=== PATIENT | female | born 1945 | race Caucasian/White ===

== ENCOUNTER 2024-10-27 19:12 | Emergency (ER) | payer MEDICARE, SELFPAY ==
[2024-10-27 19:14] VITALS: BP 114/58
[2024-10-27 20:38] VITALS: BP 122/58
[2024-10-27] MEDS: NSS 1000 IV (20:40)
[2024-10-27 20:41] VITALS: BMI 23.2
[2024-10-27 20:46] VITALS: BP 122/58
[2024-10-27 21:00] VITALS: BP 118/61
[2024-10-27 21:00] LABS: Hematocrit 30.5 % (37.0-47.0); Hemoglobin 10.3 g/dL (12.0-16.0); Mean Corp Hgb Conc. 33.8 g/dL (33.0-37.0); Mean Corpuscular Volume 82.9 fL (81.0-99.0); Platelet Count 154 10^3/uL (130-400); Red Cell Dist. Width 19.1 % (11.5-14.5)
[2024-10-27 21:13] LABS: ALT (SGPT) 13 U/L (0-35); AST (SGOT) 18 U/L (14-36); Albumin 2.8 g/dl (3.5-5.0); Alkaline Phosphatase 51 U/L (38-126); Blood Urea Nitrogen 27 mg/dl (7-17); Calcium 8.1 mg/dl (8.4-10.2); Carbon Dioxide 22 mmol/L (22-30); Chloride 98 mmol/L (98-107); Estimated Creatinine Clearance 39 ml/min; Glucose 129 mg/dl (70-99); Potassium 4.4 mmol/L (3.5-5.1); Sodium 127 mmol/L (135-145); Total Protein 5.5 g/dl (6.3-8.2); eGFR > 60.00
[2024-10-27 21:24] LABS: Absolute Neutrophils -Man Diff 1.7 10^3/uL (1.4-6.5)
[2024-10-27 21:25] LABS: Anisocytosis Slight; Basophilic Stippling Occasional; Normal RBC Morphology No; Ovalocytes Slight; Platelets Checked Yes; Poikilocytosis 1+; Polychromasia Slight; Tear Drop Red Blood Cells Slight
[2024-10-27 21:26] LABS: Acanthocytes 1+; Burr Cells Slight; Total Cells Counted 100
[2024-10-27 22:00] VITALS: BP 115/54
--- NOTE | 2024-10-27 22:00 | EDRN ---
Dr. Calderón at bedside taking with patient, wants to admit her, patient does not want to stay, patient to discuss with family
--- NOTE | 2024-10-27 22:23 | ED.GENMED ---
History of Present Illness
General
Chief Complaint: Failure to Thrive
Time Seen by Provider: 10/27/24 19:30
History of Present Illness
History of Present Illness:
79-year-old female with history of chronic back pain presenting with family for concern of failure to thrive. Patient presents from home. Family notes that the 1 to check on her today had a change in behavior. She was more aggressive, resistant
to them coming into the house and up for weeks she has not been eating or drinking. They are concerned that dehydration. Patient himself denies any falls. She denies any present pain. She does note a mild cough. Denies fever or chest pain.
Denies abdominal pain. Does note 15 pound weight loss, however over several months which family attributes to not eating. Denies any falls. Denies additional acute medical complaints
Past History
Past History
ED Past Medical History: Other (Sciatica)
ED Past Surgical History: Orthopedic
Phy Exam
Physical Exam
Physical Exam:
General: Well-appearing, slight dryness to mucous membrane, nontoxic and in no acute distress
HEENT: protecting airway
Neck: appears supple
CV: Normal heart rate, regular rhythm
Resp: No accessory muscle use, no increased work of breathing, lungs clear to auscultation bilaterally
Abd: Soft and non-distended, no tenderness to palpation
Extremities: No deformities, no swelling, no erythema, pulses and sensation intact
Neuro: alert, no focal neurologic deficit
: deferred
Rectal: deferred
Psych: Normal affect
Skin: Intact
Course
Orders/Labs/Results
Orders:
Orders
10/27/24 20:34
Electrocardiogram (*1) Stat
Reason for Study: Abdominal Pain
EKG- Treatment ONCE
0.9% Sodium Chloride 1000 ml [Nss] 1,000 ml IV BOLUS
10/27/24 20:35
Urinalysis Reflex To Culture Urgent
Date Specimen was Collected: 10/27/24
Time Specimen was Collected: 22:36
CR Chest - 2 Views Urgent
Comment:
Reason For Exam: cough
10/27/24 20:41
Complete Blood Count/With Diff Urgent
Comprehensive Metabolic Panel Urgent
Manual Differential Urgent
Abnormal Lab Results
10/27/24
20:41
WBC 2.4 L* 10^3/uL
(4.8-10.8)
RBC 3.68 L 10^6/uL
(4.20-5.40)
Hgb 10.3 L g/dL
(12.0-16.0)
Hct 30.5 L %
(37.0-47.0)
RDW 19.1 H %
(11.5-14.5)
Band Neutrophils 16 H %
(0-3)
Sodium 127 L mmol/L
(135-145)
BUN 27 H mg/dl
(7-17)
Glucose 129 H mg/dl
(70-99)
Calcium 8.1 L mg/dl
(8.4-10.2)
Total Protein 5.5 L g/dl
(6.3-8.2)
Albumin 2.8 L g/dl
(3.5-5.0)
10/27/24 20:41
10/27/24 20:41
Vital Signs
Initial and Last Documented VS:
Initial Vital Signs
Temp Pulse Resp BP Pulse Ox
100.1 F 122 16 114/58 92
10/27/24 19:14 10/27/24 19:14 10/27/24 19:14 10/27/24 19:14 10/27/24 19:14
Last Documented Vital Signs
Temp Pulse Resp BP Pulse Ox
100.1 F 94 17 122/58 98
10/27/24 19:14 10/27/24 20:46 10/27/24 20:46 10/27/24 20:46 10/27/24 22:25
MDM/Problems Addressed
MDM/Problems Addressed:
79-year-old female with history of chronic back pain presenting for concern of failure to thrive by family. Vital signs on arrival significant for low-grade temperature.
On exam, patient resting comfortably, no acute distress. Mild dryness to mucous membranes. However otherwise is hemodynamically stable and nontoxic. Amicable cardiac and pulmonary exam. No tenderness to the abdomen. No focal neurologic
deficits, patient awake, alert, oriented. Family's primary concern is for dehydration given patient's refusal to eat. Patient lives alone. EKG obtained, nonischemic, no arrhythmia. Will screen with laboratory analysis, chest x-ray imaging.
Patient with mild cough. Will also check urinalysis.
23:00- Labs significant for a low white blood cell count of 2.4, previously normal in 2022. Platelet count however is normal. No significant abnormalities on the differential. In discussion with oncology, suspects that it could be secondary to
nutrition. Sodium is also 127, in keeping with acute dehydration. Multiple discussions had with patient and family. Patient is adamantly refusing to stay in the hospital, understands the risks of continuing with her malnourishment and
dehydration. Son notes that she will come stay with him tonight until they can figure out a more permanent solution. Risks explained of not treating low sodium including increased lethargy, somnolence, which can lead to falls and additional
electrolyte abnormalities that can lead to cardiac disease. Patient verbalized understanding. Patient is awake, alert and oriented, competent to make her own decisions
*Pulse Oximetry
SaO2: 98
Oxygen Mode of Delivery: Room air
Patient hypoxic: no
*EKG
Interpreted by ED Provider?: Yes
EKG Intrepretation Date: 10/27/24
EKG Intrepretation Time: 22:28
Interpretation: normal
Heart Rate: 90
Rate: normal
Rhythm: sinus
Kiron: normal axis
Interval: normal interval
QRS Pattern: normal QRS
Ischemia: no ischemia
*Critical Care Note
Total Time (30-74mins, 75-104mins- exclusive of procedures): Not Applicable
ED Attending Note
-
Portions of this chart may have been created with voice recognition software.� Occasional wrong word or��sound alike� substitutions may have occurred due to the inherent limitations of voice recognition software.
Discharge Plan
Departure
Patient Disposition: Home (Routine Discharge)
Date of Disposition: 10/27/24
Time of Disposition: 23:00
Patient with high blood pressure during this ER visit?: No
Condition: Fair
Discharge Problem:
Dehydration, Hyponatremia
Instructions: Malnutrition - Discharge instructions, Hypovolemia in adults
Prescriptions:
No Action
hydrocodone-acetaminophen 5-325 mg Tablet
1 tab PO QIDPRN PRN (Reason: pain moderate to severe pain) Qty: 0 0RF
docusate sodium 100 mg Capsule
100 mg PO BID Qty: 0 0RF
cyclobenzaprine 10 mg Tablet
5 mg PO TID Qty: 10 0RF
polyethylene glycol 3350 [HealthyLax] 17 gram Powder In Packet
17 g PO BID Qty: 0 0RF
acetaminophen 325 mg Tablet
650 mg PO Q4HPRN PRN (Reason: mild pain/[place]/temp> 100.4F) Qty: 0 0RF
amoxicillin-pot clavulanate 875-125 mg tablet
1 tab PO BID Qty: 8 0RF
Referrals:
UNKNOWN - PT DOES,NOT KNOW [Family Provider]
Activity Restrictions/Additional Instructions:
You were seen in the emergency department for concern of dehydration
You were found to have low sodium and low white blood cell count, which can indicate dehydration. Sodium can be a dangerous electrolyte if not repleted correctly. We recommended that you stay in the hospital for continued fluids and nephrology
consultation, which is the kidney doctor. You adamantly refused. We encourage you to stay hydrated throughout the day and eat 3 full meals to stay nourished.
Please follow-up closely with your primary care physician.
Return to the emergency department for any worsening of your symptoms, or any development of chest pain, difficulty breathing, abdominal pain with persistent vomiting and inability to tolerate food or liquid by mouth (concern for dehydration),
weakness, headache or confusion, fever greater than 100.4, or any additional symptoms that are concerning to you.
Thank you for choosing [facility].
Interventions
Interventions:
*Risk Screen - Suicide Last Done: 10/27/24 19:14
*General Assessment Last Done: 10/27/24 19:14
*Neglect/Abuse Screening Last Done: 10/27/24 20:43
*ED COVID-19 Vaccine History Last Done: 10/27/24 20:43
Discharge Date and Time
Print Language: MALAY
--- NOTE | 2024-10-27 23:00 | EDRN ---
Patient decided not to stay, went over discharge paperwork with family and patient, patient aware that she can come back if she changes her mind.
== END 2024-10-28 00:25 | disposition home or self-care (01) ==
LOC: EMR 19:12
PROVIDERS: EMERGENCY PHYSICIAN Student in an Organized Health Care Education/Training Program
DX: E86.0 Dehydration (principal); E87.1 Hypo-osmolality and hyponatremia; G89.29 Other chronic pain
CPT/HCPCS: 96360; 99285; 71046; 80053; 85025; 93005